=== PATIENT | female | born 2000 | race Two or more races ===

== ENCOUNTER 2021-08-31 10:31 | Outpatient (CLI) | payer OTHER | END 2021-08-31 12:31 | disposition home or self-care (01) | LOC: PRENATAL 10:31 | PROVIDERS: ATTEND Obstetrics & Gynecology Maternal & Fetal Medicine | DX: O35.0XX1 Maternal care for (suspected) central nervous system malformation in fetus, fetus 1 (principal); O35.3XX1 Maternal care for (suspected) damage to fetus from viral disease in mother, fetus 1; O98.512 Other viral diseases complicating pregnancy, second trimester; Z36.89 Encounter for other specified antenatal screening; Z3A.21 21 weeks gestation of pregnancy ==

== ENCOUNTER 2023-04-18 15:42 | Emergency (ER) | payer OTHER ==
[~2023-04-18] VITALS: Ht 149.9 cm; Wt 67.6 kg
== END 2023-04-19 00:23 | disposition home or self-care (01) ==
LOC: ER 15:42
DX: N39.0 Urinary tract infection, site not specified (principal); R10.2 Pelvic and perineal pain; B96.29 Other Escherichia coli [E. coli] as the cause of diseases classified elsewhere